=== PATIENT | male | born 1955 | race Caucasian/White ===

== ENCOUNTER 2017-02-16 18:50 | Inpatient (IN) | payer OTHER ==
[2017-02-16 20:44] VITALS: BP 123/70
[2017-02-16] MEDS: INSULIN ASPART SLIDING SCALE 100 UNITS/ML UNIT SUBQ SCH (23:17)
[2017-02-16] MEDS: Sodium Chloride 0.9% 1,000 ML IV SCH (23:26)
[2017-02-17 05:05] LABS: % BASOPHILS 0.3 % (0.0-2.0); % EOSINOPHILS 6.8 % (0.0-5.0); % LYMPHOCYTES 20.1 % (20.0-50.0); % MONOCYTES 10.4 % (2.0-10.0); % NEUTROPHILS 62.4 % (40.0-80.0); HEMATOCRIT 34.6 % (41.0-60); HEMOGLOBIN 11.9 gm/dL (12-16); MEAN CORPUSCULAR HEMOGLOBIN 33.7 pg (26.0-30.0); MEAN CORPUSCULAR HGB CONC 34.4 pg (28.0-36.0); MEAN PLATELET VOLUME 8.1 fl; PLATELET COUNT 43 Th/cmm (150-400); RED BLOOD COUNT 3.53 Mil/cmm (4.30-5.70); RED CELL DISTRIBUTION WIDTH 14.7 % (11.5-20.0); WHITE BLOOD COUNT 4.7 Th/cmm (4.8-10.8)
[2017-02-17 05:30] LABS: ALB/GLOB RATIO 0.6 (1.0-1.8); ALKALINE PHOSPHATASE 104 U/L (34-104); ANION GAP 4.9 (7.0-16.0); BUN - UREA NITROGEN 12 mg/dL (7-25); CARBON DIOXIDE 28.6 mEq/L (21.0-31.0); CHLORIDE 108 mEq/L (98-107); CREATININE - SERUM 0.6 mg/dL (0.7-1.3); GLUCOSE 183 mg/dL (70-105); POTASSIUM SERUM 3.5 mEq/L (3.5-5.1); SGOT 48 U/L (13-39); SGPT/ALT 43 U/L (7-52); SODIUM SERUM 138 mEq/L (136-145)
[2017-02-17] MEDS: INSULIN ASPART SLIDING SCALE 100 UNITS/ML UNIT SUBQ SCH ×4 (06:56→21:36)
[2017-02-17] MEDS ORDERED: INSULIN ASPART SLIDING SCALE 100 UNITS/ML UNIT SUBQ SCH (07:30)
[2017-02-17] MEDS ORDERED: Lactulose 10 Gm/15 mL 30mL UDC PO SCH (09:00)
--- NOTE | 2017-02-17 09:08 | History and Physical ---
History of Present Illness - HPI Chief Complaint: Increased in confusion HPI: Patient started that he has having intermittent increased in confusion x 3 months. He was take to [facility] and elevated ammonia was found. He was transferred to this hospital to continue treatment. Vital Signs: Last Vital Signs Temp 98.7 F 02/17/17 08:00 Pulse 61 02/17/17 08:00 Resp 16 02/17/17 08:00 BP 113/65 02/17/17 08:00 Pulse Ox 96 02/17/17 08:00 Past Medical History Cardiovascular: Report: CAD Pulmonary: Report: No Pertinent Hx PERSONNEL ADMINISTRATOR: Report: Other (Hepatic Encephalopathy) GI: Report: Other (Cirrhosis) Psych: Report: Other (Hepatic encephalopathy.) Musculoskeletal: Report: Weakness Rheumatologic: Report: No pertinent Hx Infectious Disease: Report: No Pertinent Hx Renal/: Report: No Pertinent Hx Endocrine: Report: Diabetes Dermatology: Report: No Pertinent Hx - Past Surgical History Past Surgical History: No pertinent Hx Family Medical History - Family Member Mother History Unknown: Yes Social History Smoke: No Alcohol: None Drugs: None Lives: Other (Transition home) Domestic Violence: Negative - Medications Home Medications: Home Medication Medication Instructions Recorded Type Furosemide [Lasix] 20 mg PO DAILY 02/16/17 History Furosemide [Lasix] 80 mg PO DAILY 02/16/17 History Lactulose 15 ml PO Q8HR 02/16/17 History Lansoprazole [Prevacid] 30 mg PO 02/16/17 History Metronidazole [Flagyl] 500 mg PO BID 02/16/17 History Oxymetazoline [Afrin] 1 spr NS 02/16/17 History Propranolol HCl [Inderal*] 10 mg PO BID 02/16/17 History Spironolactone [Aldactone*] 100 mg PO DAILY 02/16/17 History Spironolactone [Aldactone] 50 mg PO DAILY 02/16/17 History metFORMIN [Glucophage] 500 mg PO DAILY 02/16/17 History metFORMIN [Glucophage] 850 mg PO BID 02/16/17 History - Allergies Allergies/Adverse Reactions: Allergies Allergy/AdvReac Type Severity Reaction Status Date / Time No Known Allergies Allergy Verified 02/16/17 20:45 Review of Systems - Review of Systems Constitutional: Report: Weakness Eyes: Report: No Significant ENT: Report: No Significant Respiratory: Report: No Significant Cardiovascular: Report: No Significant Gastrointestinal: Report: No Significant Genitourinary: Report: No Significant Musculoskeletal: Report: No Significant Skin: Report: No Significant Neurological: Report: Other (Confusion) Physical Exam - Physical Exam HEENT: Report: Ears Nose Throat within normal limits Neck: Report: Within normal limits Cardiovascular Systems: Report: Regular, Rate and Rhythm Respiratory: Report: Breath Sounds are within normal limits Abdomen: Report: Non-tender to palpation Back: Report: Inspection of back is within normal limits. Extremities: Report: Non-tender to palpation. Skin: Report: Color of skin is within normal limits Neuro/Psych: Report: Mood affect is within normal limits - Lab Results All Lab Results last 24 hours: Laboratory Last Values WBC 4.7 Th/cmm (4.8-10.8) L 02/17/17 04:55 RBC 3.53 Mil/cmm (4.30-5.70) L 02/17/17 04:55 Hgb 11.9 gm/dL (12-16) L 02/17/17 04:55 Hct 34.6 % (41.0-60) L 02/17/17 04:55 MCV 98.0 fl (80-99) 02/17/17 04:55 MCH 33.7 pg (26.0-30.0) H 02/17/17 04:55 MCHC Differential 34.4 pg (28.0-36.0) 02/17/17 04:55 RDW 14.7 % (11.5-20.0) 02/17/17 04:55 Plt Count 43 Th/cmm (150-400) L 02/17/17 04:55 MPV 8.1 fl 02/17/17 04:55 Neutrophils % 62.4 % (40.0-80.0) 02/17/17 04:55 Lymphocytes % 20.1 % (20.0-50.0) 02/17/17 04:55 Monocytes % 10.4 % (2.0-10.0) H 02/17/17 04:55 Eosinophils % 6.8 % (0.0-5.0) H 02/17/17 04:55 Basophils % 0.3 % (0.0-2.0) 02/17/17 04:55 Sodium 138 mEq/L (136-145) 02/17/17 04:55 Potassium 3.5 mEq/L (3.5-5.1) 02/17/17 04:55 Chloride 108 mEq/L (98-107) H 02/17/17 04:55 Carbon Dioxide 28.6 mEq/L (21.0-31.0) 02/17/17 04:55 Anion Gap 4.9 (7.0-16.0) L 02/17/17 04:55 BUN 12 mg/dL (7-25) 02/17/17 04:55 Creatinine 0.6 mg/dL (0.7-1.3) L 02/17/17 04:55 Est GFR ( Amer) > 60.0 ml/min (>90) 02/17/17 04:55 Est GFR (Non-Af Amer) > 60.0 ml/min 02/17/17 04:55 BUN/Creatinine Ratio 20.0 02/17/17 04:55 Glucose 183 mg/dL (70-105) H 02/17/17 04:55 POC Glucose 191 MG/DL (70 - 105) H 02/17/17 06:43 Hemoglobin A1c % 8.5 % (4.0-6.0) H 02/17/17 04:55 Calcium 8.0 mg/dL (8.6-10.3) L 02/17/17 04:55 Total Bilirubin 4.0 mg/dL (0.3-1.0) H 02/17/17 04:55 AST 48 U/L (13-39) H 02/17/17 04:55 ALT 43 U/L (7-52) 02/17/17 04:55 Alkaline Phosphatase 104 U/L (34-104) 02/17/17 04:55 Ammonia 170 umol/L (16-53) H 02/17/17 04:55 Total Protein 5.8 gm/dL (6.0-8.3) L 02/17/17 04:55 Albumin 2.1 gm/dL (4.2-5.5) L 02/17/17 04:55 Globulin 3.7 gm/dL 02/17/17 04:55 Albumin/Globulin Ratio 0.6 (1.0-1.8) L 02/17/17 04:55 Laboratory Results - last 24 hr 02/16/17 02/17/17 02/17/17 20:37 04:55 04:55 WBC 4.7 L RBC 3.53 L Hgb 11.9 L Hct 34.6 L MCV 98.0 MCH 33.7 H MCHC Differential 34.4 RDW 14.7 Plt Count 43 L MPV 8.1 Neutrophils % 62.4 Lymphocytes % 20.1 Monocytes % 10.4 H Eosinophils % 6.8 H Basophils % 0.3 Sodium 138 Potassium 3.5 Chloride 108 H Carbon Dioxide 28.6 Anion Gap 4.9 L BUN 12 Creatinine 0.6 L Est GFR ( Amer) > 60.0 Est GFR (Non-Af Amer) > 60.0 BUN/Creatinine Ratio 20.0 Glucose 183 H POC Glucose 379 H Hemoglobin A1c % Calcium 8.0 L Total Bilirubin 4.0 H AST 48 H ALT 43 Alkaline Phosphatase 104 Ammonia Total Protein 5.8 L Albumin 2.1 L Globulin 3.7 Albumin/Globulin Ratio 0.6 L 02/17/17 02/17/17 02/17/17 04:55 04:55 06:43 WBC RBC Hgb Hct MCV MCH MCHC Differential RDW Plt Count MPV Neutrophils % Lymphocytes % Monocytes % Eosinophils % Basophils % Sodium Potassium Chloride Carbon Dioxide Anion Gap BUN Creatinine Est GFR ( Amer) Est GFR (Non-Af Amer) BUN/Creatinine Ratio Glucose POC Glucose 191 H Hemoglobin A1c % 8.5 H Calcium Total Bilirubin AST ALT Alkaline Phosphatase Ammonia 170 H Total Protein Albumin Globulin Albumin/Globulin Ratio - Assessment Assessment: Patient is awake, alert, calm in no acute distress. Dx: Hepatic encephalopathy , Cirrhosis, DM - Plan Plan: Patient in IV NS, Lactulose and continue with home meds, Consult with GI is requested, Abdominal US is ordered. Will continue to monitor.
[2017-02-17] MEDS: Pantoprazole 40 mg EC Tab PO SCH (09:22)
[2017-02-17] MEDS: Lactulose 10 Gm/15 mL 30mL UDC PO SCH ×3 (09:22→21:35)
[2017-02-17] MEDS ORDERED: VTE Chemical Prophylaxis Screen/Admission MC PRN (10:43)
--- NOTE | 2017-02-17 11:35 | Diagnostic Imaging Report ---
Abdominal ultrasound HISTORY: Pain The liver exhibits a homogeneous parenchyma. No focal lesions. The gallbladder appears normal. No calculi are seen. No biliary dilatation (common bile duct is 4 mm). No definite abnormality seen in the region of the pancreas. The right kidney appears normal. The left kidney is normal in size. A 5 mm echogenic density is noted within the midportion of the kidney that may represent a calculus. No hydronephrosis. The spleen is enlarged (15.0 cm). No other retroperitoneal or intra-abdominal abnormalities. IMPRESSION: 1. Splenomegaly 2. 5 mm echogenic density in the midportion of the left kidney. This may reflect a calculus. No hydronephrosis.
[2017-02-17 13:17] LABS: INR 1.38 (0.5-1.4); PROTHROMBIN TIME (TEST) 14.6 SECONDS (9.5-11.5)
[2017-02-17] MEDS: Sodium Chloride 0.9% 1,000 ML IV SCH (13:49)
--- NOTE | 2017-02-18 02:16 | Consultation ---
DATE OF CONSULTATION: 02/17/2017 CONSULTING PHYSICIAN: Dr. Owens. REASON FOR CONSULTATION: Cirrhosis, hepatic encephalopathy. HISTORY OF PRESENT ILLNESS: The patient is a 62-year-old male with past medical history significant for hepatitis C, cirrhosis, decompensated previously by ascites, who is now presenting with 1 week of intermittent increasing confusion. The patient notes that he was diagnosed with liver cirrhosis about a year ago. At that time, he had developed a swollen abdomen and swollen legs. He reports being put on diuretic therapy at that time and being given a diagnosis of hepatitis C. The patient has been under the care of his primary care physician since then and had been referred for hepatitis C treatment to ____. The patient reports that he is currently undergoing evaluation for hepatitis C treatment and recently saw a specialist at [facility] towards this effect. The patient notes that on Monday last week he began to notice some confusion, he apparently had tried to leave his facility by reporting that he did not have any pants on when in fact he did have pants on. The patient was seen at [facility] ER that night and given lactulose x 1, but was not given any prescription for lactulose ongoing. He did see his physician on Monday and does not know if he was given a prescription for lactulose or rifaximin at that time. He apparently was okay for the rest of the week, but then yesterday was told that he was being incoherent by the recovery house where he stays. Thus, he was brought to the Emergency Room for altered mental status. Since admission, the patient has been given lactulose and has cleared up mentally. He now is A and O x 3 and feels well. PAST MEDICAL HISTORY: Hepatitis C, liver cirrhosis, type 2 diabetes. PAST SURGICAL HISTORY: The patient denies. FAMILY HISTORY: There is no history of colon, GI, or liver disease in his family. SOCIAL HISTORY: The patient has not drunk alcohol for 40 years. He does not smoke. 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 ALLERGIES: No known drug allergies. REVIEW OF SYSTEMS: A 12-point review of systems was performed and is negative other than the pertinent positives mentioned in the history of present illness. The patient denies any melena or hematochezia or hematemesis. He does not have any abdominal distention or complaint of this. CURRENT MEDICATIONS: Lasix 20 mg, insulin, lactulose, metformin, pantoprazole, propranolol, Aldactone 50 mg. PHYSICAL EXAMINATION: VITAL SIGNS: Blood pressure is 113/65, pulse of 61, temperature 98.0 Fahrenheit, satting 95% on room air. GENERAL: The patient is lying flat in bed, in no apparent distress, alert and oriented x 3. HEAD, EARS, EYES, NOSE, and THROAT: Some small scleral icterus is noted. Pupils are equal and reactive to light. Extraocular muscles are intact. Moist mucous membranes. Atraumatic appearing head. NECK: No thyromegaly, no lymphadenopathy, no JVD. CHEST: Clear to auscultation bilaterally. ABDOMEN: Soft, nontender to palpation. No distention. No fluid wave. No guarding, no rebound. EXTREMITIES: No pitting edema. Positive pulses. Full range of motion. SKIN: Slight jaundice is present. No obvious rashes. LABORATORY DATA: White blood cell count 4.7, hemoglobin 11.9, platelet count 43. Sodium 138, BUN 12, creatinine 0.6, total bilirubin 4, AST 48, ALT 43, alkaline phosphatase 104. Ammonia level 170. Abdominal ultrasound has been performed and shows no focal liver lesions. The gallbladder appears normal. No biliary dilation, common bile duct 4 mm. IMPRESSION: This is a 62-year-old male with past medical history of hepatitis C, cirrhosis, previously decompensated by ascites, now admitted with hepatic encephalopathy. 1. Liver cirrhosis. 2. Hepatitis C, not yet treated. 3. History of ascites. 4. Hepatic encephalopathy. DISCUSSION: The patient does appear to be experiencing encephalopathy likely related to his history of liver cirrhosis as his ammonia level was elevated on admission. He describes 1 week history of confusion, which was evaluated in the [facility] ER, but not significantly treated. We are unable to calculate his MELD score at this time given there is no INR level, but I suspect that he has significant liver disease given his bilirubin level of 4. He now would be classified as decompensated cirrhosis given his encephalopathy. He does not currently have any evidence of ascites as he has been taking Lasix and Aldactone at home. PLAN: 1. Agree with lactulose. He will need to take this in order to have 3-4 bowel movements per day on discharge. 2. I agree with evaluation for hepatitis C treatment. This is already ongoing. 3. He may need to be referred to have evaluation for liver transplant as well, this can be done as an outpatient. 4. Continue home dose diuretics. 5. Unclear when the last time the patient had upper endoscopy was. He will need to have this evaluated with his outpatient GI physician for variceal screening purposes. 6. Strict 2 gram sodium diet. 7. Abdominal ultrasound shows no sign of liver lesion, thus HCC screening is up to date. 8. Avoid alcohol at all cost. 9. We will send other liver serologies just to ensure there is no concurrent disease. I will continue to follow. Thank you for allowing me to participate in the care of this patient. Please call with any further questions. JOB# [id number]
[2017-02-18 05:27] LABS: % BASOPHILS 1.5 % (0.0-2.0); % LYMPHOCYTES 6.8 % (20.0-50.0); % MONOCYTES 5.8 % (2.0-10.0); % NEUTROPHILS 81.9 % (40.0-80.0); HEMOGLOBIN 13.3 gm/dL (12-16); MEAN CELL VOLUME 96.8 fl (80-99); MEAN CORPUSCULAR HEMOGLOBIN 33.6 pg (26.0-30.0); MEAN CORPUSCULAR HGB CONC 34.8 pg (28.0-36.0); MEAN PLATELET VOLUME 8.7 fl; NEUTROPHILE ABSOLUTE 4.8 Th/cmm (1.8-8.0); PLATELET COUNT 47 Th/cmm (150-400); RED BLOOD COUNT 3.96 Mil/cmm (4.30-5.70)
[2017-02-18 05:30] LABS: HEMATOCRIT 38.4 % (41.0-60); WHITE BLOOD COUNT 5.8 Th/cmm (4.8-10.8)
[2017-02-18 05:55] LABS: ALB/GLOB RATIO 0.6 (1.0-1.8); ALKALINE PHOSPHATASE 96 U/L (34-104); ANION GAP 6.4 (7.0-16.0); BILIRUBIN,TOTAL 4.9 mg/dL (0.3-1.0); BUN - UREA NITROGEN 12 mg/dL (7-25); BUN/CREATININE RATIO 17.1; CALCIUM SERUM 8.7 mg/dL (8.6-10.3); CARBON DIOXIDE 28.4 mEq/L (21.0-31.0); CHLORIDE 103 mEq/L (98-107); CREATININE - SERUM 0.7 mg/dL (0.7-1.3); GLUCOSE 191 mg/dL (70-105); POTASSIUM SERUM 3.8 mEq/L (3.5-5.1); SGOT 58 U/L (13-39); SGPT/ALT 49 U/L (7-52); SODIUM SERUM 134 mEq/L (136-145)
[2017-02-18 06:30] LABS: TSH 2.28 uIU/ml (0.34-5.60)
[2017-02-18] MEDS: INSULIN ASPART SLIDING SCALE 100 UNITS/ML UNIT SUBQ SCH (06:40)
[2017-02-18] MEDS: Pantoprazole 40 mg EC Tab PO SCH (08:43)
[2017-02-18] MEDS: Lactulose 10 Gm/15 mL 30mL UDC PO SCH (08:43)
--- NOTE | 2017-02-18 10:02 | General Progress Note ---
Subjective - Review of Systems Service Date: 02/18/17 Subjective: Pt is A/Ox3, no pain issues. No events Objective - Results Result Diagrams: 02/18/17 05:09 02/18/17 05:09 Recent Labs: Laboratory Last Values WBC 5.8 Th/cmm (4.8-10.8) D 02/18/17 05:09 RBC 3.96 Mil/cmm (4.30-5.70) L 02/18/17 05:09 Hgb 13.3 gm/dL (12-16) 02/18/17 05:09 Hct 38.4 % (41.0-60) L D 02/18/17 05:09 MCV 96.8 fl (80-99) 02/18/17 05:09 MCH 33.6 pg (26.0-30.0) H 02/18/17 05:09 MCHC Differential 34.8 pg (28.0-36.0) 02/18/17 05:09 RDW 15.0 % (11.5-20.0) 02/18/17 05:09 Plt Count 47 Th/cmm (150-400) L 02/18/17 05:09 MPV 8.7 fl 02/18/17 05:09 Neutrophils % 81.9 % (40.0-80.0) H 02/18/17 05:09 Lymphocytes % 6.8 % (20.0-50.0) L 02/18/17 05:09 Monocytes % 5.8 % (2.0-10.0) 02/18/17 05:09 Eosinophils % 4.0 % (0.0-5.0) 02/18/17 05:09 Basophils % 1.5 % (0.0-2.0) 02/18/17 05:09 PT 14.6 SECONDS (9.5-11.5) H 02/17/17 12:50 INR 1.38 (0.5-1.4) 02/17/17 12:50 Sodium 134 mEq/L (136-145) L 02/18/17 05:09 Potassium 3.8 mEq/L (3.5-5.1) 02/18/17 05:09 Chloride 103 mEq/L (98-107) 02/18/17 05:09 Carbon Dioxide 28.4 mEq/L (21.0-31.0) 02/18/17 05:09 Anion Gap 6.4 (7.0-16.0) L 02/18/17 05:09 BUN 12 mg/dL (7-25) 02/18/17 05:09 Creatinine 0.7 mg/dL (0.7-1.3) 02/18/17 05:09 Est GFR ( Amer) > 60.0 ml/min (>90) 02/18/17 05:09 Est GFR (Non-Af Amer) > 60.0 ml/min 02/18/17 05:09 BUN/Creatinine Ratio 17.1 02/18/17 05:09 Glucose 191 mg/dL (70-105) H 02/18/17 05:09 POC Glucose 181 MG/DL (70 - 105) H 02/18/17 06:35 Hemoglobin A1c % 8.5 % (4.0-6.0) H 02/17/17 04:55 Calcium 8.7 mg/dL (8.6-10.3) 02/18/17 05:09 Total Bilirubin 4.9 mg/dL (0.3-1.0) H 02/18/17 05:09 AST 58 U/L (13-39) H 02/18/17 05:09 ALT 49 U/L (7-52) 02/18/17 05:09 Alkaline Phosphatase 96 U/L (34-104) 02/18/17 05:09 Ammonia 86 umol/L (16-53) H 02/18/17 05:09 Total Protein 6.7 gm/dL (6.0-8.3) 02/18/17 05:09 Albumin 2.4 gm/dL (4.2-5.5) L 02/18/17 05:09 Globulin 4.3 gm/dL 02/18/17 05:09 Albumin/Globulin Ratio 0.6 (1.0-1.8) L 02/18/17 05:09 TSH 2.28 uIU/ml (0.34-5.60) 02/18/17 05:09 - Physical Exam Vitals and I&O: Vital Signs Temp 97.6 F 02/18/17 08:00 Pulse 89 02/18/17 08:43 Resp 20 02/18/17 08:00 BP 137/69 02/18/17 08:43 Pulse Ox 94 02/18/17 08:00 Intake & Output 02/17/17 02/18/17 02/18/17 18:59 06:59 18:59 Intake Total 1000.0 240 Balance 1000.0 240 Weight (lbs) 78.953 kg 81.647 kg Intake: Intake, IV Amount 1000.0 Sodium Chloride 0.9% 1, 1000.0 000 ml @ 90 mls/hr IV . Q11H7M [facility] Rx#:[id number] Oral 240 Other: # Voids 3 2 # Bowel Movements 1 Stool Characteristics Soft Soft Liquid Liquid Active Medications: Current Medications Furosemide (Lasix) 20 mg PO DAILY [facility] Stop: 04/18/17 08:59 Last Admin: 02/18/17 08:43 Dose: 20 mg Sodium Chloride (Nacl 0.9%) 1,000 mls @ 90 mls/hr IV .Q11H7M [facility] Stop: 04/17/17 21:52 Last Admin: 02/17/17 13:49 Dose: 90 mls/hr Insulin Aspart (Novolog Insulin Sliding Scale) 0 units SUBQ ACHS [facility] PRN Reason: Protocol Stop: 04/17/17 22:28 Last Admin: 02/18/17 06:40 Dose: 3 units Lactulose (Cephulac) 20 gm PO TID [facility] Stop: 04/18/17 08:59 Last Admin: 02/18/17 08:43 Dose: 20 gm Metformin HCl (Glucophage) 850 mg PO BID [facility] Stop: 04/18/17 08:59 Last Admin: 02/18/17 08:43 Dose: 850 mg Miscellaneous (Vte Chemical Prophylaxis Screen/ Admission) 1 ea PRN PRN PRN Reason: PROTOCOL Stop: 04/18/17 10:42 Pantoprazole Sodium (Protonix) 40 mg PO DAILY [facility] Stop: 04/18/17 08:59 Last Admin: 02/18/17 08:43 Dose: 40 mg Propranolol HCl (Inderal) 10 mg PO BID [facility] Stop: 04/18/17 08:59 Last Admin: 02/18/17 08:43 Dose: 10 mg Spironolactone (Aldactone) 50 mg PO DAILY [facility] Stop: 04/18/17 08:59 Last Admin: 02/18/17 08:43 Dose: 50 mg General: Alert, Oriented x3 HEENT: Atraumatic Neck: Supple Cardiovascular: Regular rate, Normal S1, Normal S2 Abdomen: Soft, Other (no distension, no guard, no rebound, no tenderness) Assessment/Plan - Assessment Assessment: # Cirrhosis, decompensated by ascites and HE # Hepatitis C MELD is 18 and Octavio class is C given encephalopathy. Pt now more lucid with rifaximin and lactulose therapy. US negative for hepatoma or evidence of biliary obstruction. Will need senior care lactulose therapy on dc Plan: - cont lactulose, titrate to 3-4 BMs per day - cont home dose diuresis to prevent ascites accumulation - 2g sodium diet - continue outpt HCV treatment eval - Will benefit from liver transplant eval as an outpt (probably after HCV treatment is complete) - Alcohol avoidance
--- NOTE | 2017-02-18 10:24 | Discharge Summary ---
General Discharge Summary - Discharge Summary Date of Admission: 02/17/17 Admitting Diagnosis: Hepatic encephalopathy, Cirrhosis, DM Discharge Date: 02/18/17 Discharge Diagnosis: Hepatic encephalopaty, Cirrhosis, DM Laboratory Findings: Laboratory Tests 02/16/17 02/17/17 02/17/17 20:37 04:55 04:55 WBC 4.7 L RBC 3.53 L Hgb 11.9 L Hct 34.6 L MCV 98.0 MCH 33.7 H MCHC Differential 34.4 RDW 14.7 Plt Count 43 L MPV 8.1 Neutrophils % 62.4 Lymphocytes % 20.1 Monocytes % 10.4 H Eosinophils % 6.8 H Basophils % 0.3 PT INR Sodium 138 Potassium 3.5 Chloride 108 H Carbon Dioxide 28.6 Anion Gap 4.9 L BUN 12 Creatinine 0.6 L Est GFR ( Amer) > 60.0 Est GFR (Non-Af Amer) > 60.0 BUN/Creatinine Ratio 20.0 Glucose 183 H POC Glucose 379 H Hemoglobin A1c % Calcium 8.0 L Total Bilirubin 4.0 H AST 48 H ALT 43 Alkaline Phosphatase 104 Ammonia Total Protein 5.8 L Albumin 2.1 L Globulin 3.7 Albumin/Globulin Ratio 0.6 L [facility] 02/17/17 02/17/17 02/17/17 04:55 04:55 06:43 WBC RBC Hgb Hct MCV MCH MCHC Differential RDW Plt Count MPV Neutrophils % Lymphocytes % Monocytes % Eosinophils % Basophils % PT INR Sodium Potassium Chloride Carbon Dioxide Anion Gap BUN Creatinine Est GFR ( Amer) Est GFR (Non-Af Amer) BUN/Creatinine Ratio Glucose POC Glucose 191 H Hemoglobin A1c % 8.5 H Calcium Total Bilirubin AST ALT Alkaline Phosphatase Ammonia 170 H Total Protein Albumin Globulin Albumin/Globulin Ratio [facility] 02/17/17 02/17/17 02/17/17 11:27 12:50 17:19 WBC RBC Hgb Hct MCV MCH MCHC Differential RDW Plt Count MPV Neutrophils % Lymphocytes % Monocytes % Eosinophils % Basophils % PT 14.6 H INR 1.38 Sodium Potassium Chloride Carbon Dioxide Anion Gap BUN Creatinine Est GFR ( Amer) Est GFR (Non-Af Amer) BUN/Creatinine Ratio Glucose POC Glucose 194 H 279 H Hemoglobin A1c % Calcium Total Bilirubin AST ALT Alkaline Phosphatase Ammonia Total Protein Albumin Globulin Albumin/Globulin Ratio [facility] 02/17/17 02/18/17 02/18/17 21:30 05:09 05:09 WBC 5.8 D RBC 3.96 L Hgb 13.3 Hct 38.4 L D MCV 96.8 MCH 33.6 H MCHC Differential 34.8 RDW 15.0 Plt Count 47 L MPV 8.7 Neutrophils % 81.9 H Lymphocytes % 6.8 L Monocytes % 5.8 Eosinophils % 4.0 Basophils % 1.5 PT INR Sodium 134 L Potassium 3.8 Chloride 103 Carbon Dioxide 28.4 Anion Gap 6.4 L BUN 12 Creatinine 0.7 Est GFR ( Amer) > 60.0 Est GFR (Non-Af Amer) > 60.0 BUN/Creatinine Ratio 17.1 Glucose 191 H POC Glucose 238 H Hemoglobin A1c % Calcium 8.7 Total Bilirubin 4.9 H AST 58 H ALT 49 Alkaline Phosphatase 96 Ammonia Total Protein 6.7 Albumin 2.4 L Globulin 4.3 Albumin/Globulin Ratio 0.6 L TSH 02/18/17 02/18/17 05:09 06:35 WBC RBC Hgb Hct MCV MCH MCHC Differential RDW Plt Count MPV Neutrophils % Lymphocytes % Monocytes % Eosinophils % Basophils % PT INR Sodium Potassium Chloride Carbon Dioxide Anion Gap BUN Creatinine Est GFR ( Amer) Est GFR (Non-Af Amer) BUN/Creatinine Ratio Glucose POC Glucose 181 H Hemoglobin A1c % Calcium Total Bilirubin AST ALT Alkaline Phosphatase Ammonia 86 H Total Protein Albumin Globulin Albumin/Globulin Ratio TSH 2.28 Hospital Course: Patient was transfered from [facility], he was started in Lactulose, IV NS , he was continue with home meds, consult with GI was done and recommendation were follow. With this treatment patient improved, Ammonia level come down. Condition at Discharge: Stable Disposition: PT DISCHARGED HOME Home Medications: Home Medication Medication Instructions Recorded Type Furosemide [Lasix] 20 mg PO DAILY 02/16/17 History Furosemide [Lasix] 80 mg PO DAILY 02/16/17 History Lactulose 15 ml PO Q8HR 02/16/17 History Lansoprazole [Prevacid] 30 mg PO 02/16/17 History Metronidazole [Flagyl] 500 mg PO BID 02/16/17 History Oxymetazoline [Afrin] 1 spr NS 02/16/17 History Propranolol HCl [Inderal*] 10 mg PO BID 02/16/17 History Spironolactone [Aldactone*] 100 mg PO DAILY 02/16/17 History Spironolactone [Aldactone] 50 mg PO DAILY 02/16/17 History metFORMIN [Glucophage] 500 mg PO DAILY 02/16/17 History metFORMIN [Glucophage] 850 mg PO BID 02/16/17 History Inpatient Medications: Current Medications Furosemide (Lasix) 20 mg PO DAILY [facility] Stop: 04/18/17 08:59 Last Admin: 02/18/17 08:43 Dose: 20 mg Sodium Chloride (Nacl 0.9%) 1,000 mls @ 90 mls/hr IV .Q11H7M [facility] Stop: 04/17/17 21:52 Last Admin: 02/17/17 13:49 Dose: 90 mls/hr Insulin Aspart (Novolog Insulin Sliding Scale) 0 units SUBQ ACHS [facility] PRN Reason: Protocol Stop: 04/17/17 22:28 Last Admin: 02/18/17 06:40 Dose: 3 units Lactulose (Cephulac) 20 gm PO TID [facility] Stop: 04/18/17 08:59 Last Admin: 02/18/17 08:43 Dose: 20 gm Metformin HCl (Glucophage) 850 mg PO BID [facility] Stop: 04/18/17 08:59 Last Admin: 02/18/17 08:43 Dose: 850 mg Miscellaneous (Vte Chemical Prophylaxis Screen/ Admission) 1 ea [facility] PRN PRN PRN Reason: PROTOCOL Stop: 04/18/17 10:42 Pantoprazole Sodium (Protonix) 40 mg PO DAILY [facility] Stop: 04/18/17 08:59 Last Admin: 02/18/17 08:43 Dose: 40 mg Propranolol HCl (Inderal) 10 mg PO BID [facility] Stop: 04/18/17 08:59 Last Admin: 02/18/17 08:43 Dose: 10 mg Spironolactone (Aldactone) 50 mg PO DAILY [facility] Stop: 04/18/17 08:59 Last Admin: 02/18/17 08:43 Dose: 50 mg Activity: As Tolerated Discharge Diet: 2 Gram Sodium (PCP)
[2017-02-18 11:15] LABS: HEP B CORE IGM Negative (Negative); HEP C ANTIBODY >11.0 s/co ratio (0.0-0.9)
== END 2017-02-18 11:30 | disposition home or self-care (01) | DRG 279 ==
LOC: TELE 18:50
PROVIDERS: ADMIT General Practice; ATTEND General Practice
DX: K72.90 Hepatic failure, unspecified without coma (principal); R18.8 Other ascites; E11.9 Type 2 diabetes mellitus without complications; K74.60 Unspecified cirrhosis of liver; I25.10 Atherosclerotic heart disease of native coronary artery without angina pectoris; B19.20 Unspecified viral hepatitis C without hepatic coma; Z79.84 Long term (current) use of oral hypoglycemic drugs; E44.1 Mild protein-calorie malnutrition
CPT/HCPCS: 36415-UA; 76700-TC; 80053-TC; 80074-90; 82140-TC; 82948-90; 83036-90; 84443-TC; 85007-TC; 85025-TC; 85027-TC; 85610-TC; J1815; J7030; Z7610